=== PATIENT | male | born 1990 ===

== ENCOUNTER 2022-06-02 09:09 | Outpatient (CLI) | payer OTHER, SELFPAY | END 2022-06-02 09:10 | disposition home or self-care (01) | PROVIDERS: PCP Family Medicine; Visit Provider Family Medicine | DX: Z00.00 Encounter for general adult medical examination without abnormal findings (principal); Z13.6 Encounter for screening for cardiovascular disorders | CPT/HCPCS: 80048; 80061 ==

== ENCOUNTER 2023-10-05 09:47 | Outpatient (CLI) | payer OTHER, SELFPAY ==
--- NOTE | 2023-10-05 10:15 | MR_ITS ---
[address] [address] Phone:?[phone] Fax:?[phone] Referring Physician Information: Neo Copeland M.D. [id number] [facility] [address] Phone:?[phone] Fax:?[phone] Patient:Yoanna Mcelroy D.O.B:?1990 Sex:?Male Phone:?[phone] [facility] MRN:?[id number] Exam Date:?10/05/2023 EXAM: MRI EXAMINATION OF THE RIGHT WRIST WITHOUT CONTRAST CLINICAL INFORMATION: Male, 33 years old, with right wrist pain. INDICATION: Evaluate for cyst or occult fracture. PRIOR SURGERY: None reported. PLAIN FILMS: None available. COMPARISONS: No prior MRIs available. TECHNICAL INFORMATION: Using a 1.5T MR scanner and a localizing surface coil: coronals: PD, T2, STIR sagittals: PD, T2 axials: PD, T2 SEDATION: None CONTRAST: None FINDINGS: Bones and joints: No stress/occult fracture, bone marrow edema, or carpal bone osteonecrosis. No discrete osteochondral lesion. No significant effusion in the distal radioulnar, radiocarpal, midcarpal, or carpometacarpal joint spaces. Triangular fibrocartilage: The triangular fibrocartilage proper, distal dorsal and volar radioulnar ligaments, ulnar collateral ligament/meniscal homologue, ulnotriquetral, and ulnolunate ligaments are intact. The extensor carpi ulnaris is unremarkable. Ligaments: No evidence for scapholunate or lunotriquetral interosseous ligament disruption. Interosseous distances between the scaphoid, lunate and triquetrum appear uniform and normal. Alignment:?Type II lunate. The capitolunate angle measures 20? (<30? normal). The scapholunate angle measures 54? (30?-60? normal). Ulnar variance is neutral. Tendons: The flexor tendons are normal in caliber and signal intensity throughout their course including within the carpal tunnel. The tendons within the 1st-6th extensor compartments are intact. No significant tendinopathy, and without tenosynovitis, tendon split or tendon disruption. Neurovascular structures: The median nerve appears normal in caliber and signal intensity throughout its course including within the carpal tunnel. The ulnar nerve is intact and normal in appearance. No evidence for intrinsic/extrinsic mass within Guyon's canal. Soft tissues: A slender ganglion cyst is present along the dorsal/radial aspect of the wrist measuring 2.4 x 0.1 x 1.0 cm (axial PD series 3 image 48 and sagittal PD series 6 image 38). There is also a slender radial/volar ganglion cyst arising from the radiocarpal joint measuring 4 x 1 x 9 mm (sagittal PD series 6 image 39 and axial PD series 3 image 52). IMPRESSION: 1. Slender dorsal ganglion cyst measuring 2.4 x 0.1 x 1.0 cm and is located at the level of the midcarpal row. 2. Slender radial/volar ganglion cyst measuring 4 x 1 x 9 mm, arising from the radiocarpal joint. 3. No ligamentous or TFCC sprain/tear. 4. No fracture or osseous stress reaction. 5. No chondromalacia, osteochondral lesion, pathologic joint effusion. 6. No myotendinous abnormality. BC Electronically signed on 10/05/2023 11:18:00 AM by Mani Bender M.D.
== END 2023-10-05 09:48 | disposition home or self-care (01) ==
PROVIDERS: PCP Family Medicine; Visit Provider Orthopaedic Surgery Sports Medicine
DX: M25.531 Pain in right wrist (principal); M67.431 Ganglion, right wrist; S62.001A Unspecified fracture of navicular [scaphoid] bone of right wrist, initial encounter for closed fracture
CPT/HCPCS: 73221

== ENCOUNTER 2024-09-19 10:07 | Outpatient (CLI) | payer OTHER, SELFPAY | END 2024-09-19 10:08 | disposition home or self-care (01) | PROVIDERS: PCP Family Medicine; Visit Provider Family Medicine | DX: E78.00 Pure hypercholesterolemia, unspecified (principal); R50.9 Fever, unspecified; Z11.9 Encounter for screening for infectious and parasitic diseases, unspecified | CPT/HCPCS: 80048; 80061; 86618; 87468; 87469; 87484; 87798 ==